=== PATIENT | male | born 1950 | race Caucasian/White ===

== ENCOUNTER → 2016-08-16 | Outpatient (CLI) | payer OTHER ==
--- NOTE | 2016-08-16 11:20 | EKG ---
[facility] [place] Measurements Intervals [place] Rate: 66 P: 62 SC: 188 QRS: 35 QRSD: 99 T: 49 QT: 389 QTc: 403 Interpretive Statements SINUS RHYTHM Compared to ECG 05/01/2016 10:10:39 No significant changes Electronically Signed On 08-16-16 13:16:23 MST by Fuentes Carballo [email or web address]
== END ==
LOC: EKG 11:18
PROVIDERS: ATTEND Physician Assistant Medical
DX: R07.89 Other chest pain (principal)
CPT/HCPCS: 93005; 93010

== ENCOUNTER → 2016-08-20 | Outpatient (CLI) | payer OTHER | LOC: MMPC 11:11 | PROVIDERS: ATTEND Surgery | DX: K21.9 Gastro-esophageal reflux disease without esophagitis (principal); R07.89 Other chest pain; R10.13 Epigastric pain | CPT/HCPCS: 99201; G0463 ==

== ENCOUNTER → 2016-09-06 | Outpatient (CLI) | payer OTHER ==
--- NOTE | 2016-09-06 13:44 | DI ---
XR UPPER GI SERIES A/C W/O KUB,09/06/2016 10:43 AM: Clinical History: Gastroesophageal reflux disease Previous Exam: None at this facility. Findings: Multiple images from an upper gastrointestinal series are obtained demonstrating normal course, calib er and distensibility of the esophagus. The stomach demonstrates normal size, shape and distensibility. There are normal gastric rugal folds. The distal stomach, duodenal bulb and duodenal sweep are normal. There was gastroesophageal reflux disease seen to the level of the proximal esophagus during the enti re exam. Impression: Severe gastroesophageal reflux seen throughout the exam otherwise unremarkable.
== END ==
LOC: RAD 10:36
PROVIDERS: ATTEND Surgery
DX: K21.9 Gastro-esophageal reflux disease without esophagitis (principal)
CPT/HCPCS: 74246

== ENCOUNTER → 2016-09-26 | Outpatient (CLI) | payer OTHER ==
--- NOTE | 2016-09-26 20:29 | DI ---
ABDOMINAL ULTRASOUND, 09/26/2016 10:59 AM: Clinical History: Abdominal pain. Gastroesophageal reflux disease without esophagitis. This history w as furnished to me directly by the attending surgeon. Previous Exam: None at this facility. Scans are performed through the right and left upper quadrants in multiple projections. The gallbladder is well distended and has a normal wall thickness. There are no gall stones. Common b ile duct measures 3mm. The liver is normal in size but shows diffuse increased echogenicity with decr eased through transmission consistent with fatty infiltration or cirrhosis. Both kidneys are normal i n appearance. The left kidney is small measuring 95 mm in the right kidney measures 110 mm. The splee n is normal. The head and body of the pancreas are visualized and that structure is normal. The IVC a nd aorta are normal. READIN. Fatty infiltration of the liver without hepatomegaly. 2. The gallbladder, both kidneys, the spleen, IVC, and aorta are normal.
== END ==
LOC: US 10:53
PROVIDERS: ATTEND Surgery
DX: K21.9 Gastro-esophageal reflux disease without esophagitis (principal); R07.89 Other chest pain; K76.0 Fatty (change of) liver, not elsewhere classified
CPT/HCPCS: 76700

== ENCOUNTER → 2017-02-12 | Outpatient (CLI) | payer OTHER ==
[2017-02-12 14:56] LABS: BASOPHILS # (AUTO) 0.03 10*3/UL; BASOPHILS % (AUTO) 0.5 % (0-1); EOSINOPHILS # (AUTO) 0.18 10*3/UL; EOSINOPHILS % (AUTO) 3.2 % (0-8); HEMATOCRIT 44.6 % (42.0-52.0); HEMOGLOBIN 14.7 g/dL (14.0-18.0); MEAN CORPUSCULAR HEMOGLOBIN 30.8 PG (27-31); MEAN CORPUSCULAR VOLUME 93.3 FL (80-90); MEAN PLATELET VOLUME 11.1 FL (7.4-12.2); MONOCYTES # (AUTO) 0.74 10*3/UL (0.3-0.8); MONOCYTES % (AUTO) 13.2 % (5-15); NEUTROPHILS # (AUTO) 2.94 10*3/UL; NEUTROPHILS % (AUTO) 52.5 % (50-80); RED BLOOD COUNT 4.78 10^6/uL (4.70-6.10)
[2017-02-12 14:57] LABS: PLATELET MORPHOLOGY COMMENT NORMAL MORPHOLOGY (NORM); RBC MORPHOLOGY COMMENT NORMAL MORPHOLOGY (NORM); WBC MORPHOLOGY COMMENT NORMAL MORPHOLOGY (NORM)
[2017-02-12 15:08] LABS: BILIRUBIN,URINE NEGATIVE (NEG); CLARITY,URINE CLEAR (CLEAR); COLOR,URINE YELLOW; GLUCOSE, URINE (UA) NEGATIVE (NEG); NITRATE,URINE NEGATIVE (NEG); OCCULT BLOOD,URINE NEGATIVE (NEG); PH,URINE 5.5 (5.0-8.5); PROTEIN,URINE NEGATIVE (NEG); URINE SAMPLE TYPE CLEAN CATCH URINE; UROBILINOGEN,URINE 0.2 EU/dL (0.2)
[2017-02-12 15:11] LABS: BLOOD UREA NITROGEN 23 mg/dL (7-22); CALCIUM 9.3 mg/dL (8.7-10.7); EST GLOMERULAR FILTRATION > 60 (>60 ml/min/1.73m(2)); SERUM ALBUMIN 4.3 g/dL (3.5-4.8)
== END ==
LOC: LAB 09:24
PROVIDERS: ATTEND Orthopaedic Surgery
DX: M25.562 Pain in left knee (principal); Z01.818 Encounter for other preprocedural examination
CPT/HCPCS: 80053; 81003; 85025; 86850; 86900; 86901; 87641